=== PATIENT | male | born 1980 | race African-American/Black ===

== ENCOUNTER 2021-04-15 08:38 | Emergency (ER) | payer MEDICAID ==
[~2021-04-15] VITALS: Ht 175.3 cm; Wt 80.0 kg
[2021-04-15] MEDS ORDERED: LEVETIRACETAM 500MG PREMIX 100 ML IV ONE (09:15)
[2021-04-15 09:31] LABS: BASOPHILS % 0.5 % (0.0-2.0); EOSINOPHILS % 1.5 % (0.0-5.0); HEMATOCRIT. 49.5 % (42.0-52.0); HEMOGLOBIN. 16.7 g/dL (14.0-18.0); LYMPHOCYTES % 21.6 % (20.0-50.0); MEAN CORPUSCULAR VOLUME 100.7 fL (80.0-94.0); MEAN PLATELET VOLUME 8.7 fl (7.4-10.4); MONOCYTES % 10.6 % (2.0-8.0); NEUTROPHILS % 65.8 % (40.0-76.0); PLATELET 190 x1000/uL (130-400); RED BLOOD CELL COUNT 4.92 mill/uL (4.7-6.1); RED CELL DISTRIBUTION WIDTH 13.3 % (11.6-14.6)
[2021-04-15 11:55] VITALS: BP 98/59
== END 2021-04-15 11:58 | disposition home or self-care (01) ==
LOC: ER 08:57
DX: R56.9 Unspecified convulsions (principal); I10 Essential (primary) hypertension; Z88.0 Allergy status to penicillin
CPT/HCPCS: 36415; 85025; 96374; 99284; J1953; Z7610; 99283